=== PATIENT | male | born 1965 ===

== ENCOUNTER 2017-03-10 06:29 | Emergency (ER) | payer OTHER ==
[2017-03-10 06:34] VITALS: BMI 27.3
[2017-03-10 06:46] VITALS: RESP 18
--- NOTE | 2017-03-10 07:34 | ED PDOC ---
Upper Extremity Pain/Injury Time Seen by Provider: 03/10/17 07:10 Chief Complaint (Nursing): Upper Extremity Problem/Injury Chief Complaint (Provider): Right upper extremity numbness History Per: Patient History/Exam Limitations: no limitations Onset/Duration Of Symptoms: Hrs (5) Current Symptoms Are (Timing): Still Present Additional History Per: Patient Additional Complaint(s): 51yo male with past medical history of hypertension, hypercholesterolemia, diabetes, right rotator cuff repair, who is right hand dominant, presents to the ED for evaluation of right forearm numbness and pain since 2AM this morning. Patient states he woke up from his sleep due to the numbness. He denies any history of numbness or weakness to his upper extremities in the past. 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 He denies any headache, neck pain. He has no other complaints. Past Medical History Reviewed: Historical Data, Nursing Documentation, Vital Signs Vital Signs: Last Vital Signs Temp 97.3 F L 03/10/17 06:42 Pulse 77 03/10/17 06:42 Resp 18 03/10/17 06:42 BP 156/78 H 03/10/17 06:42 Pulse Ox 97 03/10/17 06:42 - Medical History PMH: Diabetes, HTN, Hypercholesterolemia - Surgical History Surgical History: Coronary Stent Other surgeries: Right rotator cuff repair - Family History Family History: States: No Known Family Hx - Social History Current smoker - smoking cessation education provided: No Ex-Smoker (has not smoked in the last 12 months): No Alcohol: None Drugs: Denies - Immunization History Hx Tetanus Toxoid Vaccination: Yes (03/27/2013) Hx Influenza Vaccination: No Hx Pneumococcal Vaccination: Yes (03/27/2013) - Home Medications Home Medications: Ambulatory Orders Medication Instructions Recorded Pantoprazole Sodium [Protonix] 40 mg PO DAILY #20 ect 02/20/13 Aspirin 81 mg PO DAILY 03/29/13 Atorvastatin 20 mg PO DAILY 03/29/13 MetFORMIN 1,000 mg PO BID 03/29/13 Metoprolol 25 mg PO BID 03/29/13 Naproxen 375 mg PO TID PRN #15 tab 03/29/13 - Allergies Allergies/Adverse Reactions: Allergies Allergy/AdvReac Type Severity Reaction Status Date / Time No Known Allergies Allergy Verified 05/24/13 07:55 Review of Systems ROS Statement: Except As Marked, All Systems Reviewed And Found Negative Musculoskeletal: Positive for: Arm Pain (right forearm pain). Negative for: Neck Pain Neurological: Positive for: Numbness (right forearm numbness). Negative for: Headache Physical Exam - Reviewed Nursing Documentation Reviewed: Yes Vital Signs Reviewed: Yes - Physical Exam Appears: Positive for: Non-toxic, No Acute Distress Head Exam: Positive for: ATRAUMATIC, NORMAL INSPECTION, NORMOCEPHALIC Skin: Positive for: Normal Color Eye Exam: Positive for: Normal appearance, EOMI, PERRL Neck: Positive for: Supple Cardiovascular/Chest: Positive for: Regular Rate, Rhythm Respiratory: Positive for: Normal Breath Sounds. Negative for: Respiratory Distress Extremity: Positive for: Normal ROM (normal ROM of Right upper extremity). Negative for: Deformity, Swelling Neurologic/Psych: Positive for: Alert, Oriented, Gait (steady), Other (5/5 motor strength of bilateral upper extremities.). Negative for: Motor/Sensory Deficits - Laboratory Results Result Diagrams: 03/10/17 08:02 03/10/17 08:02 - ECG O2 Sat by Pulse Oximetry: 97 (RA) Pulse Ox Interpretation: Normal Medical Decision Making Medical Decision Making: Time: 732 Impression: Brachial neuropathy Differential: Carpal tunnel syndrome Plan: -- CT C-Spine -- Labs -- EKG Reassess Time: 101 CT C-Spine FINDINGS: VERTEBRAE: No fracture. Normal alignment. No destructive bony lesion. DISCS/SPINAL CANAL/NEURAL FORAMINA: No significant central canal or neural foraminal stenosis. There is disc degeneration with disc bulging and osteophyte formation at C3-4. Mild disc bulge at C4-5 and C5-6 PARASPINAL SOFT TISSUES: Unremarkable. OTHER FINDINGS: None. IMPRESSION: Multilevel disc degeneration. No acute findings Scribe Attestation: Documented by Chiquis Conrad acting as a scribe for Pranav Rae MD. Provider Attestation: All medical record entries made by the Scribe were at my direction and personally dictated by me. I have reviewed the chart and agree that the record accurately reflects my personal performance of the history, physical exam, medical decision making, and the department course for this patient. I have also personally directed, reviewed, and agree with the discharge instructions and disposition. Disposition - Clinical Impression Clinical Impression: Arm pain, right, Paresthesia of arm, DJD (degenerative joint disease), cervical - Patient ED Disposition Is Patient to be Admitted: No Doctor Will See Patient In The: Office Counseled Patient/Family Regarding: Studies Performed, Diagnosis, Need For Followup - Disposition Referrals: Blayne Dunaway MD [Staff Provider] - Disposition: Routine/Home Disposition Time: 11:38 Condition: GOOD Additional Instructions: Follow up with your PCP in and neurologist within 2-3 days. Instructions: Paresthesia (ED), Arm Pain (ED)
[2017-03-10 08:17] LABS: BASO # 0.1 K/uL (0.0-0.2); BASO % 0.5 % (0.0-2.0); EOS # 0.1 K/uL (0.0-0.7); EOS % 1.3 % (0.0-4.0); HEMATOCRIT 41.7 % (35.0-51.0); LYMPH # 3.7 K/uL (1.0-4.3); LYMPH % 35.3 % (20.0-40.0); MEAN CELL VOLUME 87.7 fl (80.0-94.0); MEAN CORPUSCULAR HGB CONC 34.3 g/dL (33.0-37.0); MONO # 0.8 K/uL (0.0-0.8); MONO % 7.7 % (0.0-10.0); NEUT # 5.8 K/uL (1.8-7.0); NEUT % 55.2 % (50.0-75.0); NRBC % 0.1 % (0.0-0.0); WHITE BLOOD COUNT 10.5 K/uL (4.8-10.8)
[2017-03-10 08:27] LABS: BLOOD UREA NITROGEN 11 mg/dl (9-20); CALCIUM 8.6 mg/dL (8.4-10.2); CARBON DIOXIDE 28 mmol/L (22-30); CHLORIDE 105 mmol/L (98-107); GFR AFRICAN-AMERICAN > 60; GLUCOSE,RANDOM 143 mg/dL (75-110); POTASSIUM 3.8 MMOL/L (3.6-5.0); SODIUM 140 mmol/l (132-148)
--- NOTE | 2017-03-10 09:37 | CT ---
PROCEDURE: CT Cervical Spine without contrast HISTORY: Left arm pain COMPARISON: None available. TECHNIQUE: Axial computed tomography images were obtained of the cervical spine without the use of intravenous contrast. Coronal and sagittal reformatted images were created and reviewed. Radiation dose: Total exam DLP = 548 mGy-cm. This CT exam was performed using one or more of the following dose reduction techniques: Automated exposure control, adjustment of the mA and/or kV according to patient size, and/or use of iterative reconstruction technique. FINDINGS: VERTEBRAE: No fracture. Normal alignment. No destructive bony lesion. DISCS/SPINAL CANAL/NEURAL FORAMINA: No significant central canal or neural foraminal stenosis. There is disc degeneration with disc bulging and osteophyte formation at C3-4. Mild disc bulge at C4-5 and C5-6 PARASPINAL SOFT TISSUES: Unremarkable. OTHER FINDINGS: None. IMPRESSION: Multilevel disc degeneration. No acute findings
--- NOTE | 2017-03-10 12:01 | CARD ---
APPROVED REPORT EKG Measurement Heart [id number] <Conclusion> Normal sinus rhythm Normal ECG
[2017-03-10 12:36] VITALS: BP 127/79; PULSE 64; TEMP 98; O2SAT 99
== END 2017-03-10 12:36 | disposition home or self-care (01) ==
LOC: H.ER 06:29
DX: M79.601 Pain in right arm (principal); R20.2 Paresthesia of skin; E11.9 Type 2 diabetes mellitus without complications; E78.00 Pure hypercholesterolemia, unspecified; I10 Essential (primary) hypertension; Z79.84 Long term (current) use of oral hypoglycemic drugs; Z95.5 Presence of coronary angioplasty implant and graft

== ENCOUNTER 2018-06-05 15:20 | Emergency (ER) | payer BC, OTHER ==
[2018-06-05 15:21] VITALS: BMI 27.3
[2018-06-05] MEDS ORDERED: Sodium Chloride 0.9% 1,000 ML IV STA (15:57)
--- NOTE | 2018-06-05 16:20 | ED PDOC ---
HPI: Abdomen Time Seen by Provider: 06/05/18 15:49 Chief Complaint (Nursing): Abdominal Pain Chief Complaint (Provider): Abdominal Pain History Per: Patient History/Exam Limitations: no limitations Onset/Duration Of Symptoms: Days Current Symptoms Are (Timing): Still Present Additional Complaint(s): 52 y/o male with a PMHx of DM and a Stent (x10 years ago) presents to the ED for evaluation of diffuse abdominal pain, onset a couple of weeks ago. Patient states pain worsened yesterday and is associated with nausea. Patient notes pain worsens when eating and gets mildly relieved after. Patient reports of being evaluated at [facility] yesterday, had blood work done and was discharged home after labs resulted normally. Patient notes pain has not resolved and thus presents here today requesting further workup. Of note, patient reports of running out of diabetic medications two days ago. Patient states he usually goes to the [facility] but reports he has not returned because he no longer has insurance. Patient denies vomiting, diarrhea, chest pain, shortness of breath, headache, dizziness, weakness and taking medications for symptom relief. No urinary complaints. PMD: [facility] Past Medical History Reviewed: Historical Data, Nursing Documentation, Vital Signs Vital Signs: Last Vital Signs Temp 98.5 F 06/05/18 15:38 Pulse 70 06/05/18 15:38 Resp 18 06/05/18 15:38 BP 173/86 H 06/05/18 15:38 Pulse Ox 100 06/05/18 15:38 - Medical History PMH: Diabetes, HTN, Hypercholesterolemia - Surgical History Surgical History: Coronary Stent (x1 (10 years ago)) - Family History Family History: States: Unknown Family Hx - Immunization History Hx Tetanus Toxoid Vaccination: No (03/27/2013) Hx Influenza Vaccination: No Hx Pneumococcal Vaccination: No (03/27/2013) - Home Medications Home Medications: Ambulatory Orders Medication Instructions Recorded Aspirin 81 mg PO DAILY 03/29/13 Atorvastatin 20 mg PO DAILY 03/29/13 MetFORMIN 1,000 mg PO BID 03/29/13 Famotidine [Pepcid] 20 mg PO DAILY PRN #6 tab 06/05/18 Ibuprofen [Motrin] 600 mg PO TID 7 Days tab 06/05/18 - Allergies Allergies/Adverse Reactions: Allergies Allergy/AdvReac Type Severity Reaction Status Date / Time No Known Allergies Allergy Verified 06/05/18 15:38 Review of Systems ROS Statement: Except As Marked, All Systems Reviewed And Found Negative Constitutional: Negative for: Weakness Cardiovascular: Negative for: Chest Pain Respiratory: Negative for: Shortness of Breath Gastrointestinal: Positive for: Nausea, Abdominal Pain. Negative for: Vomiting, Diarrhea Neurological: Negative for: Weakness, Headache, Dizziness Physical Exam - Reviewed Nursing Documentation Reviewed: Yes Vital Signs Reviewed: Yes - Physical Exam Appears: Positive for: No Acute Distress Head Exam: Positive for: ATRAUMATIC, NORMOCEPHALIC Skin: Positive for: Normal Color, Warm, Dry Eye Exam: Positive for: Normal appearance, EOMI, PERRL ENT: Positive for: Normal ENT Inspection Neck: Positive for: Normal, Painless ROM, Supple Cardiovascular/Chest: Positive for: Regular Rate, Rhythm. Negative for: Murmur Respiratory: Positive for: Normal Breath Sounds. Negative for: Respiratory Distress Gastrointestinal/Abdominal: Positive for: Tenderness (mild diffuse abdominal tenderness) Back: Positive for: Normal Inspection. Negative for: L CVA Tenderness, R CVA Tenderness Extremity: Positive for: Normal ROM. Negative for: Pedal Edema, Deformity Neurologic/Psych: Positive for: Alert, Oriented. Negative for: Motor/Sensory Deficits - Laboratory Results Result Diagrams: 06/05/18 16:14 06/05/18 16:14 Lab Results: 280 glucose - ECG O2 Sat by Pulse Oximetry: 100 (RA) Pulse Ox Interpretation: Normal - CT Scan/US ct Other Rad Studies (CT/US): Read By Radiologist Other Rad Interpretation: kidney stones - Progress ED Course And Treament: 1900: Stable. AAOx3. Pain free. Tolerated PO. Stones in the kidney. Fu with urology and pcp. Medical Decision Making Medical Decision Making: Time: 1558 Impression: Abdominal Pain Plan: -- CT Abd/Pelvis IV Contrast -- CMP -- Lipase -- ED Urine Dipstick -- CBC with Differentials -- Sodium Chloride IV 1000 mls/hr -- Pepcid 20 mg IVP Scribe Attestation: Documented by Lety Ramirez, acting as a scribe for Jakob Monk MD. Provider Scribe Attestation: All medical record entries made by the Scribe were at my direction and personally dictated by me. I have reviewed the chart and agree that the record accurately reflects my personal performance of the history, physical exam, medical decision making, and the department course for this patient. I have also personally directed, reviewed, and agree with the discharge instructions and disposition. Disposition - Clinical Impression Clinical Impression: Kidney stone, Abdominal pain, Hyperglycemia - Patient ED Disposition Is Patient to be Admitted: No Counseled Patient/Family Regarding: Studies Performed, Diagnosis, Need For Followup, Rx Given - Disposition Referrals: Davonte Lima MD [Medical Doctor] - 06/06/18 [facility] [Outside] - 06/06/18 Disposition: Routine/Home Disposition Time: 19:02 Condition: STABLE Additional Instructions: Return if not better in 3 days. Prescriptions: Famotidine [Pepcid] 20 mg PO DAILY PRN #6 tab PRN Reason: Pain Ibuprofen [Motrin] 600 mg PO TID 7 Days tab Instructions: Kidney Stones in Adults, Stomach Ache and Stomach Upset, Hyperglycemia, Adult Forms: [facility] ED School/Work Excuse
[2018-06-05 16:27] LABS: ALB/GLOB RATIO 1.4 (1.0-2.1); ALBUMIN 4.3 g/dL (3.5-5.0); ALT/SGPT 24 U/L (21-72); AST/SGOT 15 U/L (17-59); BASO % 0.5 % (0.0-2.0); BLOOD UREA NITROGEN 15 mg/dl (9-20); CALCIUM 9.8 mg/dL (8.4-10.2); EOS # 0.1 K/uL (0.0-0.7); EOS % 1.4 % (0.0-4.0); GFR NON-AFRICAN AMERICAN > 60; HEMOGLOBIN 14.6 g/dL (12.0-18.0); LIPASE 36 U/L (23-300); LYMPH # 3.4 K/uL (1.0-4.3); LYMPH % 39.6 % (20.0-40.0); MEAN CELL VOLUME 88.6 fl (80.0-94.0); MEAN CORPUSCULAR HEMOGLOBIN 29.6 pg (27.0-31.0); MEAN CORPUSCULAR HGB CONC 33.4 g/dL (33.0-37.0); MEAN PLATELET VOLUME 9.9 fl (7.2-11.7); MONO # 0.6 K/uL (0.0-0.8); MONO % 6.7 % (0.0-10.0); NEUT # 4.4 K/uL (1.8-7.0); NEUT % 51.8 % (50.0-75.0); NRBC % 0.1 % (0.0-0.0); RBC 4.94 Mil/uL (4.40-5.90); RED CELL DISTRIBUTION WIDTH 13.4 % (11.5-14.5); WHITE BLOOD COUNT 8.5 K/uL (4.8-10.8)
[2018-06-05] MEDS ORDERED: Iohexol 300 100 ML IJ ONE (16:54)
[2018-06-05] MEDS ORDERED: Sodium Chloride 0.9% 50 ML IV ONE (16:54)
--- NOTE | 2018-06-05 17:43 | CT ---
Date of service: 06/05/2018 PROCEDURE: CT Abdomen and Pelvis with contrast HISTORY: Diffuse abdominal pain 3 weeks duration. COMPARISON: None. TECHNIQUE: Intravenous contrast dose: Radiation dose: Total exam DLP = <inf_radiation_dlp> mGy-cm. This CT exam was performed using one or more of the following dose reduction techniques: Automated exposure control, adjustment of the mA and/or kV according to patient size, and/or use of iterative reconstruction technique. FINDINGS: LOWER THORAX: Unremarkable. LIVER: Unremarkable. No gross lesion or ductal dilatation. GALLBLADDER AND BILE DUCTS: Unremarkable. PANCREAS: Unremarkable. No gross lesion or ductal dilatation. SPLEEN: Unremarkable. ADRENALS: Unremarkable. No mass. KIDNEYS AND URETERS: Left kidney and ureter: Multiple calcified fragments within the collecting system including large central calculus measures 1.6 x 2.8 cm. Additional smaller fragments the preponderance of which are less than 1 cm noted in mid and lower pole collecting systems. No evidence of hydroureter. Right kidney in ureter: Unremarkable. No hydronephrosis. No solid mass. VASCULATURE: Unremarkable. No aortic aneurysm. Atherosclerotic calcification and mural plaque present. Findings are seen throughout the aorta. BOWEL: Unremarkable. No obstruction. No gross mural thickening. APPENDIX: A normal appendix is visualized in it's entirety. PERITONEUM: Unremarkable. No free fluid. No free air. LYMPH NODES: Unremarkable. No enlarged lymph nodes. BLADDER: Unremarkable. REPRODUCTIVE: Unremarkable. BONES: No acute fracture. Degenerative changes limited to L4-5 and L5-S1. OTHER FINDINGS: None. IMPRESSION: Unilateral, left upper tract calculus disease with fragments ranging from 5 mm to the largest central calculus 1.6 x 2.8 cm.
[2018-06-05 19:16] VITALS: RESP 19
[2018-06-05 19:20] VITALS: BP 137/80; PULSE 68; TEMP 97.7; O2SAT 98
== END 2018-06-05 19:21 | disposition home or self-care (01) ==
LOC: H.ER 15:20
DX: N20.0 Calculus of kidney (principal); R10.9 Unspecified abdominal pain; E11.65 Type 2 diabetes mellitus with hyperglycemia; Z79.84 Long term (current) use of oral hypoglycemic drugs; I10 Essential (primary) hypertension; Z95.5 Presence of coronary angioplasty implant and graft
CPT/HCPCS: 74177; 80053; 83690; 85025; 96374; 99283; J7030; Q9967